=== PATIENT | female | born 1965 | race Caucasian/White ===

== ENCOUNTER 2018-01-03 12:04 | Emergency (ER) | payer BC, OTHER ==
[2018-01-03] MEDS ORDERED: NITROGLYCERIN 0.4 MG/TAB 25 TAB/BOTTLE SL PRN (14:06)
[2018-01-03] MEDS ORDERED: ASPIRIN 81 MG TABLET, CHEWABLE PO ONE (14:06)
--- NOTE | 2018-01-03 14:06 | ER Document Report ---
ED Medical Screen (RME) <ALE WOLFF - Last Filed: 01/03/18 16:06> <LILIAN YOUNGBLOOD - Last Filed: 01/03/18 19:33> - General Chief Complaint: Chest Pain Stated Complaint: CHEST PAINS Time Seen by Provider: 01/03/18 13:56 Notes: Patient is a 52-year-old female who presents to the emergency department today with complaints of dizziness that occurred today while driving. Patient states she pulled over and had her son finish the drive. Patient states she feels like she was about to pass out prior to arrival. Patient states along with the symptoms above she had a "heavy chest". Patient had a defibrillator placed in September 2014 but it did not fire today. I have greeted and performed a rapid initial assessment of this patient. A comprehensive ED assessment and evaluation of the patient, analysis of test results, and completion of the medical decision making process will be conducted by additional ED providers. Review of systems: Positive for dizziness, near syncope, and chest heaviness. PHYSICAL EXAM GENERAL: Alert, interacts well. No acute distress. HEAD: Normocephalic, atraumatic. EYES: Pupils equal, round, and reactive to light. Extraocular movements intact. ENT: Oral mucosa moist, tongue midline. NECK: Full range of motion. Supple. Trachea midline. LUNGS: Clear to auscultation bilaterally, no wheezes, rales, or rhonchi. No respiratory distress. HEART: Regular rate and rhythm. No murmurs, gallops, or rubs. ABDOMEN: Soft, non-tender. Non-distended. Bowel sounds present in all 4 quadrants. No guarding, rigidity, or rebound. EXTREMITIES: Moves all 4 extremities spontaneously. No edema, radial and dorsalis pedis pulses 2/4 bilaterally. No cyanosis. NEUROLOGICAL: Alert and oriented x3. Normal speech. PSYCH: Normal affect, normal mood. SKIN: Warm, dry, normal turgor. No rashes or lesions noted. (ALE WOLFF) - Related Data Allergies/Adverse Reactions: Penicillins Allergy (Verified 01/03/18 12:09) adhesive Adverse Reaction (Verified 01/03/18 12:09) Past Medical History - Social History Chew tobacco use (# tins/day): No Frequency of alcohol use: None Drug Abuse: None - Past Medical History Cardiac Medical History: Reports: Hx Heart Attack, Hx Hypertension Renal/ Medical History: Denies: Hx Peritoneal Dialysis Psychiatric Medical History: Reports: Hx Depression Past Surgical History: Reports: Hx Cardiac Surgery - pacemaker <ALE WOLFF - Last Filed: 01/03/18 16:06> - Vital signs Vitals: Temp Pulse Resp BP Pulse Ox 98.4 F 80 18 139/83 H 98 01/03/18 12:15 01/03/18 12:15 01/03/18 12:15 01/03/18 12:15 01/03/18 12:15 Course - Laboratory Result Diagrams: 01/03/18 14:20 01/03/18 14:20 <ALE WOLFF - Last Filed: 01/03/18 16:06> - Laboratory Result Diagrams: 01/03/18 14:20 01/03/18 14:20 <LILIAN YOUNGBLOOD - Last Filed: 01/03/18 19:33> - Vital Signs Vital signs: Temp Pulse Resp BP Pulse Ox 98.4 F 80 18 139/83 H 98 01/03/18 12:15 01/03/18 12:15 01/03/18 12:15 01/03/18 12:15 01/03/18 12:15 - Laboratory Laboratory results interpreted by me: 01/03/18 01/03/18 14:20 14:20 WBC 12.2 H RBC 5.58 H Hgb 11.6 L MCV 67 L MCH 20.8 L MCHC 31.1 L RDW 22.6 H Sodium 146.5 H Chloride 111 H Alkaline Phosphatase 153 H Doctor's Discharge <ALE WOLFF - Last Filed: 01/03/18 16:06> <LILIAN YOUNGBLOOD - Last Filed: 01/03/18 19:33> - Discharge Clinical Impression: Near syncope Disposition: ADMITTED OBSERVATION
[2018-01-03 14:38] LABS: ABSOLUTE BASOPHILS # (AUTO) 0.1 10^3/uL (0.0-0.2); ABSOLUTE EOSINOPHILS # (AUTO) 0.6 10^3/uL (0.0-0.6); ABSOLUTE LYMPHOCYTES (AUTO) 3.8 10^3/uL (0.5-4.7); ABSOLUTE MONOCYTES (AUTO) 0.9 10^3/uL (0.1-1.4); ABSOLUTE NEUT (AUTO) 6.8 10^3/uL (1.7-8.2); BASOPHILS % (AUTO) 1.1 % (0-2); EOSINOPHILS % (AUTO) 4.9 % (0-6); HEMATOCRIT 37.4 % (36.0-47.0); HEMOGLOBIN 11.6 g/dL (12.0-15.5); LYMPHOCYTES % (AUTO) 31.1 % (13-45); MEAN CORPUSCULAR HEMOGLOBIN 20.8 pg (27.0-33.4); MEAN CORPUSCULAR HGB CONC 31.1 g/dL (32.0-36.0); MEAN CORPUSCULAR VOLUME 67 fl (80-97); MONOCYTES % (AUTO) 7.3 % (3-13); PLATELET COUNT 293 10^3/uL (150-450); RED BLOOD COUNT 5.58 10^6/uL (3.72-5.28); RED CELL DISTRIBUTION WIDTH 22.6 % (11.5-14.0); SEGMENTED NEUTROPHILS % (AUTO) 55.6 % (42-78); TOTAL CELLS COUNTED % (AUTO) 100 %; WHITE BLOOD COUNT 12.2 10^3/uL (4.0-10.5)
[2018-01-03 14:52] LABS: ALANINE AMINOTRANSFERASE 39 U/L (9-52); ALBUMIN 4.5 g/dL (3.5-5.0); ALKALINE PHOSPHATASE 153 U/L (38-126); ANION GAP 12 (5-19); ASPARTATE AMINO TRANSFERASE 34 U/L (14-36); BILIRUBIN,DIRECT 0.3 mg/dL (0.0-0.4); BILIRUBIN,TOTAL 0.4 mg/dL (0.2-1.3); BLOOD UREA NITROGEN 9 mg/dL (7-20); CALCIUM 9.9 mg/dL (8.4-10.2); CARBON DIOXIDE 24 mmol/L (22-30); CHLORIDE 111 mmol/L (98-107); CREATINE KINASE 71 U/L (30-135); GLUCOSE 84 mg/dL (75-110); POTASSIUM 4.4 mmol/L (3.6-5.0); SODIUM 146.5 mmol/L (137-145); TOTAL PROTEIN 7.9 g/dL (6.3-8.2)
[2018-01-03 15:04] LABS: CREATINE KINASE MB 0.65 ng/mL (<4.55)
[2018-01-03 15:05] LABS: TROPONIN I < 0.012 ng/mL
--- NOTE | 2018-01-03 15:30 | RADIOLOGY REPORT (SQ) ---
EXAM DESCRIPTION: CHEST SINGLE VIEW COMPLETED DATE/TIME: 01/03/2018 2:50 pm REASON FOR STUDY: chest pain COMPARISON: None. EXAM PARAMETERS: NUMBER OF VIEWS: One view. TECHNIQUE: Single frontal radiographic view of the chest acquired. RADIATION DOSE: NA LIMITATIONS: None. FINDINGS: LUNGS AND PLEURA: No opacities, masses or pneumothorax. No pleural effusion. MEDIASTINUM AND HILAR STRUCTURES: No masses. Contour normal. HEART AND VASCULAR STRUCTURES: Heart normal in size. Normal vasculature. BONES: No acute findings. HARDWARE: Neural stimulator. OTHER: No other significant finding. IMPRESSION: NO ACUTE RADIOGRAPHIC FINDING IN THE CHEST. TECHNICAL DOCUMENTATION: JOB ID: [id number] [employer]- All Rights Reserved Reading location - IP/workstation name: [email or web address]
--- NOTE | 2018-01-03 15:33 | EKG REPORT ---
SEVERITY:- BORDERLINE ECG - SINUS RHYTHM BORDERLINE T ABNORMALITIES, ANT-LAT LEADS : Confirmed by: Flavia Dunn MD 03-Jan-2018 15:33:32
--- NOTE | 2018-01-03 15:33 | EKG REPORT ---
SEVERITY:- BORDERLINE ECG - SINUS RHYTHM ATRIAL PREMATURE COMPLEX BORDERLINE T ABNORMALITIES, LATERAL LEADS : Confirmed by: Flavia Dunn MD 03-Jan-2018 15:33:28
--- NOTE | 2018-01-03 18:07 | ER Document Report ---
ED General - General Chief Complaint: Chest Pain Stated Complaint: CHEST PAINS Time Seen by Provider: 01/03/18 13:56 Mode of Arrival: Ambulatory Information source: Patient Notes: Patient is a 52-year-old female who presents to the emergency department today with complaints of dizziness that occurred today while driving. Patient states she pulled over and had her son finish the drive. Patient states she feels like she was about to pass out prior to arrival. Patient states along with the symptoms above she had a "heavy chest". Patient had a defibrillator placed in September 2014 but it did not fire today. Patient reports multiple similar episodes. - Related Data Allergies/Adverse Reactions: Penicillins Allergy (Verified 01/03/18 12:09) adhesive Adverse Reaction (Verified 01/03/18 12:09) Past Medical History - General Information source: Patient - Social History Smoking Status: Current Every Day Smoker Chew tobacco use (# tins/day): No Frequency of alcohol use: None Drug Abuse: None Lives with: Family Family History: Reviewed & Not Pertinent Patient has suicidal ideation: No Patient has homicidal ideation: No - Past Medical History Cardiac Medical History: Reports: Hx Heart Attack, Hx Hypertension Renal/ Medical History: Denies: Hx Peritoneal Dialysis Psychiatric Medical History: Reports: Hx Depression Past Surgical History: Reports: Hx Cardiac Surgery - pacemaker Review of Systems - Review of Systems Notes: REVIEW OF SYSTEMS: CONSTITUTIONAL : Denies fever, chills, or sweats. Denies recent illness. Denies weight loss, recent hospitalizations. EENT: Denies visual changes, eye pain. Denies nasal or sinus congestion or discharge. Denies sore throat, oral lesions, difficulty swallowing. CARDIOVASCULAR: Denies palpitations. Denies lower extremity edema. RESPIRATORY: Denies cough, cold, or chest congestion. Denies shortness of breath, wheezing. GASTROINTESTINAL: Denies abdominal pain or distention. Denies nausea, vomiting , or diarrhea. Denies blood in vomitus, stools, or per rectum. Denies black, tarry stools. Denies constipation. GENITOURINARY: Denies difficulty urinating, painful urination, frequency, blood in urine, or vaginal discharge. MUSCULOSKELETAL: Denies back or neck pain or stiffness. Denies joint pain or swelling. SKIN: Denies rash, lesions or sores. HEMATOLOGIC : Denies easy bruising or bleeding. LYMPHATIC: Denies swollen glands. NEUROLOGICAL: Denies confusion or altered mental status. Denies passing out or loss of consciousness. Denies dizziness. Denies headache. Denies weakness or paralysis. Denies problems difficulty with ambulation, slurred speech. Denies sensory loss, numbness, or tingling. Denies seizures. PSYCHIATRIC: Denies anxiety or stress. Denies depression, suicidal ideation, or homicidal ideation. Denies visual or auditory hallucinations. Physical Exam - Vital signs Vitals: Temp Pulse Resp BP Pulse Ox 98.4 F 80 18 139/83 H 98 01/03/18 12:15 01/03/18 12:15 01/03/18 12:15 01/03/18 12:15 01/03/18 12:15 - Notes Notes: PHYSICAL EXAMINATION: GENERAL: Well-appearing, well-nourished and in no acute distress. HEAD: Atraumatic, normocephalic. EYES: Pupils equal round and reactive to light, extraocular movements intact, conjunctiva are normal. ENT: Nares patent, oropharynx clear without exudates. Moist mucous membranes. NECK: Normal range of motion, supple without lymphadenopathy LUNGS: Breath sounds clear to auscultation bilaterally and equal. No wheezes rales or rhonchi. HEART: Regular rate and rhythm without murmurs ABDOMEN: Soft, nontender, nondistended abdomen. No guarding, no rebound. No masses appreciated. Female : deferred Musculoskeletal: Normal range of motion, no pitting or edema. No cyanosis. NEUROLOGICAL: Cranial nerves grossly intact. Normal speech, normal gait. Normal sensory, motor exams PSYCH: Normal mood, normal affect. SKIN: Warm, Dry, normal turgor, no rashes or lesions noted. Course - Re-evaluation Re-evalutation: Laboratory 01/03/18 01/03/18 01/03/18 14:20 14:20 14:20 WBC 12.2 H RBC 5.58 H Hgb 11.6 L Hct 37.4 MCV 67 L MCH 20.8 L MCHC 31.1 L RDW 22.6 H Plt Count 293 Seg Neutrophils % 55.6 Lymphocytes % 31.1 Monocytes % 7.3 Eosinophils % 4.9 Basophils % 1.1 Absolute Neutrophils 6.8 Absolute Lymphocytes 3.8 Absolute Monocytes 0.9 Absolute Eosinophils 0.6 Absolute Basophils 0.1 Sodium 146.5 H Potassium 4.4 Chloride 111 H Carbon Dioxide 24 Anion Gap 12 BUN 9 Creatinine 0.79 Est GFR ( Amer) > 60 Est GFR (Non-Af Amer) > 60 Glucose 84 Calcium 9.9 Total Bilirubin 0.4 Direct Bilirubin 0.3 Neonat Total Bilirubin Not Reportable Neonat Direct Bilirubin Not Reportable Neonat Indirect Bili Not Reportable AST 34 ALT 39 Alkaline Phosphatase 153 H Creatine Kinase 71 CK-MB (CK-2) 0.65 Troponin I < 0.012 Total Protein 7.9 Albumin 4.5 01/03/18 18:46 WBC RBC Hgb Hct MCV MCH MCHC RDW Plt Count Seg Neutrophils % Lymphocytes % Monocytes % Eosinophils % Basophils % Absolute Neutrophils Absolute Lymphocytes Absolute Monocytes Absolute Eosinophils Absolute Basophils Sodium Potassium Chloride Carbon Dioxide Anion Gap BUN Creatinine Est GFR ( Amer) Est GFR (Non-Af Amer) Glucose Calcium Total Bilirubin Direct Bilirubin Neonat Total Bilirubin Neonat Direct Bilirubin Neonat Indirect Bili AST ALT Alkaline Phosphatase Creatine Kinase CK-MB (CK-2) Troponin I < 0.012 Total Protein Albumin Chest X-Ray 01/03/18 14:06 IMPRESSION: NO ACUTE RADIOGRAPHIC FINDING IN THE CHEST. 01/03/18 18:06 Spoke to [employer] who is the evp of products & co founder for the patient's defibrillator I am awaiting a callback from the automobile rental representative. Per the defibrillator automobile rental representative there will be no retrievable information unless the defibrillator was discharged or delivered a shock which we do not believe occurred at this time. 01/03/18 19:47 Spoke to the hospitalist to does not feel the patient needs admission to the hospital. I will try to arrange for follow-up with our local civil litigation attorney. 52-year-old female with hypertension, coronary artery disease defibrillator placement presents with complaint of lightheadedness that has been occurring intermittently for months and occurred just prior to arrival while she was driving. Patient states that she became lightheaded for a few moments and then quickly came back to baseline. She denies any loss of consciousness. She denies any defibrillator discharge. She does complain of some chest heaviness but states this has also been ongoing intermittently for months. Patient recently moved here from [place] and does not currently have a local civil litigation attorney. Upon arrival patient was placed on diagnostic technician and an EKG was obtained which showed the patient to be. in normal sinus rhythm. Patient's troponin is negative 2. She has had no lightheadedness during her ED course. Spoke to hospitalist regarding admission and he does not feel that the patient would benefit from admission at this time since she already has a defibrillator in place. We did recommend to the patient that she should not drive. Patient provided the opportunity to ask questions, and express concerns. Discharge instructions discussed. Patient is agreeable with discharge home. Return indications explained and discussed with the patient who displays understanding. Patient encouraged to return to the emergency department immediately with any concerns. 01/04/18 22:49 01/04/18 22:52 - Vital Signs Vital signs: Temp Pulse Resp BP Pulse Ox 97.9 F 80 16 112/72 98 01/03/18 20:01 01/03/18 12:15 01/03/18 20:00 01/03/18 20:01 01/03/18 20:01 - Laboratory Result Diagrams: 01/03/18 14:20 01/03/18 14:20 Laboratory results interpreted by me: 01/03/18 01/03/18 14:20 14:20 WBC 12.2 H RBC 5.58 H Hgb 11.6 L MCV 67 L MCH 20.8 L MCHC 31.1 L RDW 22.6 H Sodium 146.5 H Chloride 111 H Alkaline Phosphatase 153 H - Diagnostic Test Radiology reviewed: Image reviewed, Reports reviewed Discharge - Discharge Clinical Impression: Near syncope Chest pain Qualifiers: Chest pain type: unspecified Qualified Code(s): R07.9 - Chest pain, unspecified Condition: Good Disposition: HOME, SELF-CARE Admitting Provider: Hospitalist Unit Admitted: Telemetry Instructions: Chest Pain of Unclear Cause ([facility]), Near Syncopal Episode ([facility]) Additional Instructions: Follow up with your physician tomorrow for further care or return to the ED IMMEDIATELY if symptoms worsen or new concerns occur. If you cannot afford to follow up with your primary care physician a list of low cost clinics have been provided at the end of your discharge papers as well. Forms: Elevated Blood Pressure Referrals: STACY PEREZ MD [ACTIVE STAFF] - Follow up in 3-5 days
[2018-01-03] MEDS ORDERED: NICOTINE 21 MG/24 HR PATCH.TD24 TD ONE (18:35)
[2018-01-03 20:04] VITALS: BP 112/72
== END 2018-01-03 20:04 | disposition home or self-care (01) ==
LOC: ER 12:04
DX: R07.9 Chest pain, unspecified (principal); R55 Syncope and collapse; I25.10 Atherosclerotic heart disease of native coronary artery without angina pectoris; I10 Essential (primary) hypertension; I25.2 Old myocardial infarction; Z95.810 Presence of automatic (implantable) cardiac defibrillator; Z88.0 Allergy status to penicillin
CPT/HCPCS: 36415; 71045; 80053; 82550; 82553; 84484; 85025; 93005; 93010; 99285

== ENCOUNTER 2019-02-01 13:37 | Emergency (ER) | payer BC, MEDICARE ==
[2019-02-01 13:51] VITALS: BP 139/80
--- NOTE | 2019-02-01 14:26 | ER Document Report ---
ED Medical Screen (RME) - General Chief Complaint: Chest Pain Stated Complaint: CHEST PAIN Time Seen by Provider: 02/01/19 14:14 Mode of Arrival: Ambulatory Information source: Patient Notes: Patient is a 54-year-old female with an implanted defibrillator presented to the emergency department with chest pain. Patient reports chest pain started at noon today. She states that it was a sudden delcid of pain to the left side of her chest with associated shortness of breath and heart fluttering. Exam: Lung sounds clear and equal bilaterally. Heart sounds S1-S2 present with no ectopy noted. Reproducible pain with palpation to the left chest wall. I have greeted and performed a rapid initial assessment of this patient. A comprehensive ED assessment and evaluation of the patient, analysis of test results and completion of the medical decision making process will be conducted by additional ED providers. I have specifically instructed the patient or family members with the patient to immediately return to any nursing staff should anything change in the patient's condition or with their chief complaint. This medical record was dictated with voice recognizing software. There may be grammatical, syntax errors that are unintended. TRAVEL OUTSIDE OF THE [place] IN LAST 30 DAYS: No - Related Data Allergies/Adverse Reactions: Penicillins Allergy (Verified 02/01/19 13:41) adhesive Adverse Reaction (Verified 02/01/19 13:41) Past Medical History - Social History Frequency of alcohol use: None Drug Abuse: None - Past Medical History Cardiac Medical History: Reports: Hx Heart Attack, Hx Hypertension Renal/ Medical History: Denies: Hx Peritoneal Dialysis Psychiatric Medical History: Reports: Hx Depression Past Surgical History: Reports: Hx Cardiac Surgery - pacemaker Physical Exam - Vital signs Vitals: Temp Pulse Resp BP Pulse Ox 98.2 F 90 20 139/80 H 95 02/01/19 13:50 02/01/19 13:50 02/01/19 13:50 02/01/19 13:50 02/01/19 13:50 Course - Vital Signs Vital signs: Temp Pulse Resp BP Pulse Ox 98.2 F 90 20 139/80 H 95 02/01/19 13:50 02/01/19 13:50 02/01/19 13:50 02/01/19 13:50 02/01/19 13:50
--- NOTE | 2019-02-01 14:50 | RADIOLOGY REPORT (SQ) ---
EXAM DESCRIPTION: CHEST 2 VIEWS COMPLETED DATE/TIME: 02/01/2019 2:36 pm REASON FOR STUDY: Chest Pain COMPARISON: None. EXAM PARAMETERS: NUMBER OF VIEWS: two views TECHNIQUE: Digital Frontal and Lateral radiographic views of the chest acquired. RADIATION DOSE: NA LIMITATIONS: none FINDINGS: LUNGS AND PLEURA: No opacities, masses or pneumothorax. No pleural effusion. MEDIASTINUM AND HILAR STRUCTURES: No masses or contour abnormalities. HEART AND VASCULAR STRUCTURES: Heart normal size. No evidence for failure. BONES: No acute findings. HARDWARE: stimulator electrode anterior chest wall OTHER: No other significant finding. IMPRESSION: NO ACUTE RADIOGRAPHIC FINDING IN THE CHEST. TECHNICAL DOCUMENTATION: JOB ID: [id number] [employer]- All Rights Reserved Reading location - IP/workstation name: [email or web address]
[2019-02-01 15:44] LABS: ABSOLUTE BASOPHILS # (AUTO) 0.2 10^3/uL (0.0-0.2); ABSOLUTE EOSINOPHILS # (AUTO) 0.5 10^3/uL (0.0-0.6); ABSOLUTE LYMPHOCYTES (AUTO) 2.8 10^3/uL (0.5-4.7); ABSOLUTE MONOCYTES (AUTO) 0.6 10^3/uL (0.1-1.4); ABSOLUTE NEUT (AUTO) 6.1 10^3/uL (1.7-8.2); BASOPHILS % (AUTO) 1.8 % (0-2); EOSINOPHILS % (AUTO) 4.5 % (0-6); HEMATOCRIT 34.7 % (36.0-47.0); HEMOGLOBIN 10.6 g/dL (12.0-15.5); LYMPHOCYTES % (AUTO) 27.8 % (13-45); MEAN CORPUSCULAR HEMOGLOBIN 20.6 pg (27.0-33.4); MEAN CORPUSCULAR HGB CONC 30.7 g/dL (32.0-36.0); MEAN CORPUSCULAR VOLUME 67 fl (80-97); MONOCYTES % (AUTO) 6.3 % (3-13); PLATELET COUNT 290 10^3/uL (150-450); RED BLOOD COUNT 5.17 10^6/uL (3.72-5.28); SEGMENTED NEUTROPHILS % (AUTO) 59.6 % (42-78); TOTAL CELLS COUNTED % (AUTO) 100 %; WHITE BLOOD COUNT 10.2 10^3/uL (4.0-10.5)
[2019-02-01 15:48] LABS: INTERNATIONAL RATION (INR) 0.97; PROTHROMBIN TIME 12.9 SEC (11.4-15.4)
[2019-02-01 16:01] LABS: ALANINE AMINOTRANSFERASE 47 U/L (9-52); ALBUMIN 3.8 g/dL (3.5-5.0); ALKALINE PHOSPHATASE 138 U/L (38-126); ANION GAP 8 (5-19); ASPARTATE AMINO TRANSFERASE 52 U/L (14-36); BILIRUBIN,DIRECT 0.3 mg/dL (0.0-0.4); BILIRUBIN,TOTAL 0.5 mg/dL (0.2-1.3); BLOOD UREA NITROGEN 11 mg/dL (7-20); CALCIUM 9.3 mg/dL (8.4-10.2); CARBON DIOXIDE 25 mmol/L (22-30); CHLORIDE 108 mmol/L (98-107); CREATINE KINASE 62 U/L (30-135); GLUCOSE 83 mg/dL (75-110); POTASSIUM 4.5 mmol/L (3.6-5.0); SODIUM 141.4 mmol/L (137-145)
[2019-02-01 16:12] LABS: CREATINE KINASE MB 0.23 ng/mL (<4.55)
[2019-02-01 16:13] LABS: TROPONIN I < 0.012 ng/mL
--- NOTE | 2019-02-01 18:55 | EKG REPORT ---
SEVERITY:- BORDERLINE ECG - SINUS RHYTHM BORDERLINE T ABNORMALITIES, ANT-LAT LEADS BORDERLINE PROLONGED QT INTERVAL : Confirmed by: Santos Arias MD 01-Feb-2019 18:55:10
== END 2019-02-01 21:00 | disposition left against medical advice (07) ==
LOC: ER 13:37
DX: R07.9 Chest pain, unspecified (principal); I10 Essential (primary) hypertension; Z88.0 Allergy status to penicillin; Z95.0 Presence of cardiac pacemaker; I25.2 Old myocardial infarction
CPT/HCPCS: 36415; 71046; 80053; 82550; 82553; 84484; 85025; 85610; 93005; 93010; 99281